=== PATIENT | female | born 2000 | race Caucasian/White ===

== ENCOUNTER 2020-10-03 10:39 | Emergency (ER) | payer OTHER ==
[~2020-10-03 10:39] MED LIST: DICYCLOMINE HCL20 MG PO; HEMATOGEN FA S1 EACH PO; KEFLEX250 MG PO; ONDANSETRON ODT4 MG SL
[2020-10-03 11:35] LABS: INR 1.19 (0.9-1.2); PROTHROMBIN TIME 14.3 SECONDS (11.4-13.6); PTT 31.5 SECONDS (22.2-34.7)
[2020-10-03 11:36] LABS: BASOPHIL 0.1 % (0-2); EOSINOPHIL 0.5 % (0-5); HCT 34.4 % (37.0-47.0); HGB 11.2 g/dl (12.5-16.0); LYMPHOCYTE 24.9 % (15-48); MCH 29.9 pg (25.0-31.0); MCHC 32.6 g/dL (32.0-36.0); MONOCYTE 6.6 % (0-12); MPV 10.2 fL (6.0-9.5); NEUTROPHIL 67.7 % (41-80); NRBC 0; PLT 208 K/uL (150-400); RBC 3.74 M/uL (4.20-5.40); RDW 13.1 % (11.5-14.0); WBC 8.2 K/uL (4.0-10.5)
[2020-10-03 11:37] LABS: D-DIMER 0.45 ug/mLFEU (0.00-0.41)
[2020-10-03 11:43] LABS: BILIRUBIN NEGATIVE (NEGATIVE); BLOOD NEGATIVE Ery/uL (NEGATIVE); CLARITY CLEAR (CLEAR); COLOR YELLOW (YELLOW); GLUCOSE (U) NORMAL (NORMAL); LEUKOCYTES NEGATIVE Leu/uL (NEGATIVE); NITRITE NEGATIVE (NEGATIVE); PROTEIN NEGATIVE (NEGATIVE); UROBILINOGEN 0.2 mg/dL (0.2-1.0)
[2020-10-03 11:46] LABS: ALBUMIN 3.4 g/dL (3.4-5.0); BILIRUBIN - TOTAL 0.4 mg/dL (0.2-1.0); BUN/CREAT RATIO (CALC) 14.5 RATIO; CREATININE 0.55 mg/dL (0.51-0.95); GLOBULIN (CALCULATION) 3.5 g/dL; MAGNESIUM 1.8 mg/dL (1.8-2.4); POTASSIUM 3.4 mmol/L (3.5-5.1); TOTAL PROTEIN 6.9 g/dL (6.4-8.2)
[2020-10-03] MEDS ORDERED: PRILOSEC20 MG PO ×2 (14:06→14:43)
== END 2020-10-03 14:50 | disposition home or self-care (01) ==
LOC: FER 10:39
PROVIDERS: Emergency Medicine
DX: O26.91 Pregnancy related conditions, unspecified, first trimester (principal); R07.89 Other chest pain; Z88.8 Allergy status to other drugs, medicaments and biological substances; Z3A.13 13 weeks gestation of pregnancy
CPT/HCPCS: 36415; 80053; 81003; 83690; 83735; 84484; 85025; 85379; 85610; 85730; 93005; J7030

== ENCOUNTER 2021-01-28 12:20 | Emergency (ER) | payer OTHER ==
[~2021-01-28 12:20] MED LIST changes: +PRILOSEC20 MG PO
[2021-01-28 14:32] LABS: CORONAVIRUS 2019 SARS-COV-2 NEGATIVE (NEGATIVE); INFLUENZA A NAA NEGATIVE (NEGATIVE)
== END 2021-01-28 14:58 | disposition home or self-care (01) ==
LOC: FER 12:20
PROVIDERS: Physician Assistant
DX: O98.513 Other viral diseases complicating pregnancy, third trimester (principal); B34.9 Viral infection, unspecified; Z20.822 Contact with and (suspected) exposure to COVID-19; Z88.8 Allergy status to other drugs, medicaments and biological substances
CPT/HCPCS: 99283; U0002

== ENCOUNTER 2021-04-03 22:16 | Inpatient (IN) | payer OTHER ==
[~2021-04-03] VITALS: Ht 170.2 cm; Wt 80.7 kg
[2021-04-03 22:42] LABS: BILIRUBIN NEGATIVE (NEGATIVE); BLOOD NEGATIVE Ery/uL (NEGATIVE); CLARITY CLEAR (CLEAR); COLOR YELLOW (YELLOW); GLUCOSE (U) NORMAL (NORMAL); LEUKOCYTES TRACE Leu/uL (NEGATIVE); NITRITE NEGATIVE (NEGATIVE); PROTEIN NEGATIVE (NEGATIVE); SPECIFIC GRAVITY 1.015 (1.001-1.030); UROBILINOGEN 0.2 mg/dL (0.2-1.0); pH 6.5 (5.0-9.0)
[2021-04-03 22:45] LABS: AMPHETAMINES NEGATIVE (NEGATIVE); BARBITURATES NEGATIVE (NEGATIVE); ECSTASY (MDMA) NEGATIVE (NEGATIVE); MARIJUANA (THC) NEGATIVE (NEGATIVE); METHADONE NEGATIVE (NEGATIVE); OPIATES NEGATIVE (NEGATIVE); OXYCODONE NEGATIVE (NEGATIVE)
[2021-04-03 22:55] LABS: BACTERIA TRACE; SQUAMOUS EPITHELIAL CELLS 20-50
[2021-04-04 02:49] LABS: HCT 32.7 % (37.0-47.0); HGB 10.3 g/dl (12.5-16.0); MCH 28.1 pg (25.0-31.0); MCHC 31.5 g/dL (32.0-36.0); MCV 89.1 fL (78.0-100.0); MPV 10.9 fL (6.0-9.5); RBC 3.67 M/uL (4.20-5.40); RDW 13.8 % (11.5-14.0); WBC 14.8 K/uL (4.0-10.5)
[2021-04-05 06:38] LABS: HCT 24.6 % (37.0-47.0); HGB 7.7 g/dL (12.5-16.0)
[2021-04-05] MEDS ORDERED: COLACE100 MG PO (17:28)
[2021-04-05] MEDS ORDERED: IBUPROFEN800 M1 PO (17:28)
[2021-04-05] MEDS ORDERED: PRENATAL FORMU1 EACH PO (17:28)
[2021-04-05] MEDS ORDERED: FEOSOL325 MG PO (17:28)
[2021-04-06 05:46] LABS: HCT 25.7 % (37.0-47.0); HGB 7.7 g/dl (12.5-16.0); MCH 27.5 pg (25.0-31.0); MCV 91.8 fL (78.0-100.0); MPV 9.6 fL (6.0-9.5); RBC 2.8 M/uL (4.20-5.40); RDW 14.1 % (11.5-14.0)
== END 2021-04-06 16:24 | disposition home or self-care (01) | DRG 806 ==
LOC: FOD 22:16 → FOB 22:16 → FOD 04-04 01:00 → FOB 04-04 01:12 → FOD 04-04 01:12 → FOB 04-06 16:24
PROVIDERS: ADMIT Obstetrics & Gynecology
PROC: 10E0XZZ Delivery of Products of Conception, External Approach (ICD-10-PCS; principal; 2021-04-04)
PROC: 0KQM0ZZ Repair Perineum Muscle, Open Approach (ICD-10-PCS; 2021-04-04)
PROC: 0UQMXZZ Repair Vulva, External Approach (ICD-10-PCS; 2021-04-04)
DX: O99.02 Anemia complicating childbirth (principal); D62 Acute posthemorrhagic anemia; Z37.0 Single live birth; Z20.822 Contact with and (suspected) exposure to COVID-19; Z3A.38 38 weeks gestation of pregnancy; Z78.9 Other specified health status; O70.1 Second degree perineal laceration during delivery; O71.82 Other specified trauma to perineum and vulva
CPT/HCPCS: 36415; 80305; 81001; 85014; 85018; 86850; 86900; 86901; J2300; J2405; J2916; J7120; U0002

== ENCOUNTER 2022-01-05 20:05 | Emergency (ER) | payer OTHER ==
[~2022-01-05 20:05] MED LIST changes: +COLACE100 MG PO; +FEOSOL325 MG PO; +IBUPROFEN800 M1 PO; +PRENATAL FORMU1 EACH PO
[2022-01-05 23:21] LABS: CORONAVIRUS 2019 SARS-COV-2 NEGATIVE (NEGATIVE); INFLUENZA A NAA NEGATIVE (NEGATIVE)
== END 2022-01-06 00:49 | disposition home or self-care (01) ==
LOC: FER 20:05
PROVIDERS: Physician Assistant
DX: R50.9 Fever, unspecified (principal); R05.9 Cough, unspecified; R09.81 Nasal congestion; B97.4 Respiratory syncytial virus as the cause of diseases classified elsewhere; F17.290 Nicotine dependence, other tobacco product, uncomplicated; Z88.1 Allergy status to other antibiotic agents; Z20.822 Contact with and (suspected) exposure to COVID-19; Z28.310 Unvaccinated for COVID-19
CPT/HCPCS: 94640; 99283; U0002